=== PATIENT | male | born 1990 | race Caucasian/White ===

== ENCOUNTER 2021-04-10 10:36 | Emergency (ER) | payer OTHER, SELFPAY ==
[2021-04-10 10:54] VITALS: BP 143/110; PULSE 84; RESP 20; TEMP 36.2; O2SAT 98
--- NOTE | 2021-04-10 11:29 | ED.EYEPROB ---
HPI - Eye Problem General Chief complaint: Eye Problems Stated complaint: eye injury Time Seen by Provider: 04/10/21 11:14 Source: patient and RN notes reviewed Mode of arrival: ambulatory Limitations: no limitations History of Present Illness HPI Narrative: Patient presents today with an injury to his left eye. States he was using a plastic toothpick to pick at his teeth last night. States he had an itch to his left cheek, went to scratch it with a toothpick and poked himself in the left eye with a toothpick. Currently rates his left eye 6/10. He has tried to flush the eye with saline solution and water. Pain increases with movement. He has to keep the eye closed to have any relief of symptoms. He does report a foreign body sensation and photophobia. Right eye 20/20, left eye 20/50 MD chief complaint: eye pain and eye injury Related Data Allergies Allergy/AdvReac Type Severity Reaction Status Date / Time No Known Allergies Allergy Verified 04/10/21 10:51 Review of Systems Review of Systems: Narrative: CONSTITUTIONAL: Denies body aches, fever, chills, or sweats. EYES: Denies visual changes, redness, or discharge. + Left eye injury ENT: Denies rhinorrhea, congestion, sore throat, or otalgia. CARDIOVASCULAR: Denies chest pain, palpitations, or edema. RESPIRATORY: Denies cough or dyspnea. GASTROINTESTINAL: Denies abdominal pain, nausea, vomiting, or diarrhea. GENITOURINARY: Denies dysuria or hematuria. SKIN: Denies rash, itching, or wounds. MUSCULOSKELETAL: Denies back pain, joint pain, or myalgia. NEUROLOGIC: Denies headache, numbness, tingling, or weakness. PSYCH: Denies depression or anxiety. PMFSH Comments At time of signature, I have reviewed and agree with nursing past medical, surgical, social and family history unless otherwise noted. Please see nursing chart for further information. There is no relevant family history pertinent to the presenting complaint Exam Narrative: Exam Narrative: GENERAL: Well-appearing, well-nourished, and in moderate pain distress. HEAD: Normocephalic, atraumatic. EYES: EOMI. PERRL. Upper and lower eyelids are mildly edematous. Conjunctiva injected. Fluorescein uptake noted. See procedure note. Right eye normal. ENT: Mucous membranes pink and moist. + Rhinorrhea. NECK: Normal AROM. CHEST: No respiratory distress. EXTREMITIES: Normal range of motion. No edema. SKIN: Warm, dry, no rash. Capillary refill normal. Normal skin turgor. NEURO: No focal deficits. Alert and oriented x3. Gait steady. PSYCH: Normal affect. No signs of depression or anxiety. Course Vital Signs Vital signs: Vital Signs Temperature 97.1 F L 04/10/21 10:54 Pulse Rate 84 04/10/21 10:54 Respiratory Rate 20 04/10/21 10:54 Blood Pressure 143/110 H 04/10/21 10:54 Pulse Oximetry 98 04/10/21 10:54 Temperature 97.1 F L 04/10/21 10:54 Pulse Rate 84 04/10/21 10:54 Respiratory Rate 20 04/10/21 10:54 Blood Pressure 135/89 04/10/21 11:38 Pulse Oximetry 98 04/10/21 10:54 Reviewed. Pt has been instructed to follow up with his PCP regarding his elevated blood pressure today. Procedures Other Procedure Procedure 1: Other Procedure: Left eye was anesthetized with 1 drop of tetracaine and anesthesia was achieved. The eye was flushed with eye wash. Lid was inverted and examined. Moistened Qtip was used to sweep underneath the upper eyelid with 0 foreign bodies resulting. Cornea was dyed with fluorescein and 2 abrasions or ulcerations were noted noted at the 6 o'clock position of the iris. Pt tolerated procedure well. MDM - Eye Problem Differential Diagnosis Differential diagnosis: Likely corneal abrasion, conjunctivitis, corneal ulcer and ruptured globe Critical Care Time Critical Care Time Critical Care Time: No Discharge Plan Discharge Clinical Impression: Corneal abrasion Qualifiers: Encounter type: initial encounter Laterality: left Qualified Code(s): S0
[2021-04-10 11:38] VITALS: BP 135/89
== END 2021-04-10 11:38 | disposition home or self-care (01) ==
PROVIDERS: Emergency Provider Nurse Practitioner
DX: S05.02XA Injury of conjunctiva and corneal abrasion without foreign body, left eye, initial encounter (principal); W22.8XXA Striking against or struck by other objects, initial encounter
CPT/HCPCS: 99213; A9270; G0463

== ENCOUNTER 2023-01-13 12:29 | Emergency (ER) | payer SELFPAY ==
--- NOTE | ~2023-01-13 | XR_ITS ---
EXAMINATION: XR chest 2V 01/13/2023 13:25 INDICATION: Chest pain. Tachycardia. PROCEDURE: 2 view chest COMPARISON: No prior studies for comparison. FINDINGS: The lungs are clear. The cardiomediastinal silhouette is within normal limits. There are no pleural effusions. There is no pneumothorax suspected. IMPRESSION: 1: NO ACUTE CARDIOPULMONARY DISEASE. Reviewed, dictated and finalized at location B. [facility] REPRESENTATIVE
[2023-01-13 12:32] VITALS: BP 142/124; PULSE 155; RESP 18; TEMP 36.4; O2SAT 94
--- NOTE | 2023-01-13 12:32 | ECG_ITS ---
Measurements Intervals [place] Rate: 120 P: [place]: 0 QRS: 56 QRSD: 77 T: 67 QT: 286 QTc: 406 Interpretive Statements SINUS TACHYCARDIA WITH PAC NONSPECIFIC ST & T-WAVE ABNORMALITY ABNORMAL RHYTHM ECG NO PREVIOUS ECG AVAILABLE FOR COMPARISON Electronically Signed On 01-13-2023 15:38:12 BRICK MASON by Noah Vu M.D.
[2023-01-13] MEDS: ASPIRIN 81 MG CHEWABLE TABLET 324 MG PO (13:09)
[2023-01-13 13:18] LABS: Basophils Absolute Auto 0.1 K/mm3 (0.0-0.1); Basophils Percent Auto 0.9 % (0.2-1.2); Eosinophils Absolute Auto 0.2 K/mm3 (0-0.3); Eosinophils Percent Auto 1.7 % (0-4.4); Hematocrit 51.9 % (42.0-52.0); Hemoglobin 18.6 g/dL (14.0-18.0); Immature Granulocyte Absolute 0.03 K/mm3 (0.00-0.031); Immature Granulocyte Percent A 0.3 % (0-0.5); Lymphocytes Percent Auto 20.8 % (18.3-44.2); Mean Corpuscular HGB Conc 35.8 g/dl (32-36); Mean Corpuscular Volume 86.5 fl (80-100); Mean Platelet Volume 9.9 fl (7.4-10.4); Monocytes Absolute Auto 0.7 K/mm3 (0.1-0.6); Monocytes Percent Auto 7.7 % (2.6-8.5); Neutrophils Absolute Auto 5.9 K/mm3 (1.3-6.7); Neutrophils Percent Auto 68.6 % (45.5-73.1); Platelet Count Result 278 k/mm3 (150-375); Red Cell Distribution Width 11.8 % (11.5-14.5); White Blood Count 8.7 K/mm3 (4.5-10.0)
[2023-01-13 13:27] LABS: Prothrombin Time 12.9 Seconds (11.1-14.7)
[2023-01-13 13:29] LABS: Alanine Aminotransferase 23 U/L (6-50); Albumin Level 5.4 g/dL (3.5-5.1); Alkaline Phosphatase 134 U/L (38-126); Anion Gap 12 mmol/L (8-16); Aspartate Amino Transferase 28 U/L (17-59); Bilirubin,Total 1.1 mg/dL (0.2-1.3); Blood Urea Nitrogen 16 mg/dL (9-20); Calcium 9.9 mg/dL (8.4-10.2); Carbon Dioxide 24 mmol/L (22-30); Chloride 102 mmol/L (98-107); Estimated CRCL calculation 74 ml/min; Estimated Glomerular Filt Rate > 60; Glucose 125 mg/dL (65-110); Lipase 94 U/L (23-300); Potassium 3.7 mmol/L (3.4-5.0); Sodium 138 mmol/L (137-145)
[2023-01-13 13:47] LABS: Troponin I < 0.012 ng/mL (0.000-0.034)
[2023-01-13 14:32] LABS: Amphetamine Screen Urine Negative (Negative); Barbiturate Screen Urine Negative (Negative); Benzodiazepines Screen Urine Negative (Negative); Cannabinoid Screen Urine Positive (Negative); Cocaine Screen Urine Negative (Negative); Methadone Screen Urine Negative (Negative); Opiate Screen Urine Negative (Negative); Phencyclidine Screen Urine Negative (Negative)
--- NOTE | 2023-01-13 14:41 | ED.CHESTPAIN ---
HPI - Chest Pain General Chief Complaint: Chest Pain Stated Complaint: rapid heart Time Seen by Provider: 01/13/23 13:04 Source: patient Mode of arrival: ambulatory Limitations: no limitations History of Present Illness HPI narrative: 32-year-old with a history of anxiety disorder here with complaints of chest pain, palpitations started this morning. Patient states that been having anxiety symptoms for very long time has not seen any primary doctor. While he was at work this morning he started to feel his heart racing he denies any shortness of breath patient states he has not seen a primary doctor for several years. 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 No history of fever or chills. MD complaint: chest pain Onset (ago): day(s) Prior episodes: Yes Pain radiation: none Severity: mild Relieving factors: nothing Exacerbating factors: stress Treatment prior to arrival: none Related Data Allergies Allergy/AdvReac Type Severity Reaction Status Date / Time No Known Allergies Allergy Verified 01/13/23 12:37 Review of Systems Review of Systems: All systems reviewed & are unremarkable except as noted in HPI and below Constitutional: Constitutional: Reports no additional constitutional complaints Eyes: Eyes: Reports no additional eye complaints ENT: Reports system reviewed and no additional complaints, except as documented Cardiovascular: Cardiovascular: Reports as per HPI Respiratory: Respiratory: Reports no additional respiratory complaints Gastrointestinal: Gastrointestinal: Reports no additional gastrointestinal complaints Musculoskeletal: Musculoskeletal: Reports no additional musculoskeletal complaints Integumentary/Breasts: Skin/Breast: Reports system reviewed and no additional complaints, except as docu Exam Narrative: GENERAL: Well-appearing, well-nourished, and in no acute distress. Extremely anxious HEAD: Normocephalic, atraumatic. EYES: PERRLA and EOMI. NECK: Supple. CHEST: Clear to auscultation. No respiratory distress. HEART: Tachycardia. No murmur heard. Normal peripheral pulses. ABDOMEN: Soft, nontender, nondistended, normal active bowel sounds. EXTREMITIES: Normal range of motion. No edema. SKIN: Warm, dry, no rash. NEURO: No focal deficits. Alert and oriented x3. PSYCH: Normal mood and affect. Course Course Emergency Course: Patient upon arrival was extremely anxious tachypneic tachycardic counseled regarding his anxiety advised him to do deep breathing which brought his heart rate down however he still continued to be very anxious I did give him IV Ativan and obtain lab work and EKG shows sinus tach but no acute findings. Inform patient about his lab work, EKG findings. He is feeling much better. Recommended him to follow-up with his primary doctor or on-call doctor. Take Atarax as needed for anxiety. Vital Signs Vital signs: Vital Signs Temperature 36.4 C L 01/13/23 12:32 Pulse Rate 155 H 01/13/23 12:32 Respiratory Rate 18 01/13/23 12:32 Blood Pressure 142/124 H 01/13/23 12:32 Pulse Oximetry 94 01/13/23 12:32 Oxygen Delivery Room Air 01/13/23 12:32 Temperature 36.4 C L 01/13/23 12:32 Pulse Rate 155 H 01/13/23 12:32 Respiratory Rate 18 01/13/23 12:32 Blood Pressure 142/124 H 01/13/23 12:32 Pulse Oximetry 94 01/13/23 12:32 Oxygen Delivery Room Air 01/13/23 12:32 MDM - Chest Pain MDM Narrative Medical decision making narrative: 32-year-old with a history of anxiety disorder here with having symptoms of anxiety upon arrival he was very anxious, tachycardic and hypertensive. Under cardiac work-up, give Ativan IV 1 mg Lab Data Attestation: I reviewed the patient's lab results. 01/13/23 13:00 01/13/23 13:00 Labs: Lab Results 01/13/23 01/13/23 01/13/23 Range/Units 13:00 13:00 13:00 WBC 8.7 (4.5-10.0) K/mm3 RBC 6.00 (4.6-6.20) M/mm3 Hgb 18.6 H (14.0-18.0) g/dL Hct 51.9 (42.0-52.0) % MCV 86.5
[2023-01-13] MEDS: LORazepam INJ (*CRX) 2 MG/ML VIAL 1 MG IV PUSH (14:44)
[2023-01-13 14:45] LABS: Appearance Urine Clear (Clear); Bacteria Urine None Seen /hpf; Bilirubin Urine Negative (Negative); Blood Urine Negative (Negative); Color Urine Yellow (Yellow); Glucose Urine UA Negative (Negative); Ketones Urine Trace mg/dL (Negative); Leukocyte Esterase Ur Negative LEU/UL (Negative); Nitrate Urine Negative (Negative); Non Pathogenic Casts 0-2; Protein Urine Trace mg/dL (Negative); RBC Urine 0-2 /hpf (0-2); Specific Grav Ur 1.026 (1.001-1.035); Squamous Epithelial Cell Urine None seen /hpf (Few); WBC Urine 0-5 /hpf; pH Urine 5.5 (5.0-9.0)
[2023-01-13 14:53] LABS: Add Urine Microscopic? YES
== END 2023-01-13 15:35 | disposition home or self-care (01) ==
PROVIDERS: Emergency Medicine; Emergency Provider Family Medicine
DX: R07.89 Other chest pain (principal); F41.9 Anxiety disorder, unspecified; R00.0 Tachycardia, unspecified; R94.31 Abnormal electrocardiogram [ECG] [EKG]
CPT/HCPCS: 36415; 71046; 80053; 80307; 81001; 83690; 84484; 85025; 85610; 85730; 93005; 96374; 99284; A9270; J2060

== ENCOUNTER 2024-02-22 15:33 | Emergency (ER) | payer MEDICAID, SELFPAY ==
[2024-02-22 15:40] VITALS: BP 161/94; PULSE 91; RESP 20; TEMP 36.4; O2SAT 98
--- NOTE | 2024-02-22 16:49 | ED.RECABL ---
HPI - Recheck/Abnormal Lab/Rx General Chief Complaint: Recheck/Abnormal Lab/Rx Stated Complaint: medication refill Time Seen by Provider: 02/22/24 16:18 Source: patient Mode of arrival: ambulatory Limitations: no limitations History of Present Illness HPI narrative: Patient is a 33-year-old male who presents the ED with report of needing medication refill. Patient reports a long history of severe anxiety, sees a Dr. Christopher Martinez with Psychiatry. He is prescribed clonazepam 0.5 mg t.i.d. as needed. He refilled a 25 day prescription of this on 02/05 per med rec. Patient reports he has been out of the medication for 1.5 weeks. He would like assistance with his anxiety. He would like his medication refilled. He states he is unable to get a hold of his psychiatrist as he is currently out of town. He states he has 4-6 episodes of severe anxiety per day and takes 2 pills at a time. Denies homicidal or suicidal ideation. Denies any other concerns. Related Data Allergies Allergy/AdvReac Type Severity Reaction Status Date / Time No Known Allergies Allergy Verified 02/22/24 15:35 Review of Systems Review of Systems: CONSTITUTIONAL: Denies fever, chills, or sweats. CARDIOVASCULAR: Denies chest pain. RESPIRATORY: Denies dyspnea. GASTROINTESTINAL: Denies abdominal pain, nausea, vomiting NEUROLOGIC: Denies headache, dizziness, numbness, or weakness. PSYCHIATRIC: See HPI All systems reviewed & are unremarkable except as noted in HPI and below Exam Narrative: GENERAL: Well appearing, well-nourished, non-toxic, in no acute distress. HEAD: Normocephalic, atraumatic. RESPIRATORY: Airway patent, respirations nonlabored. Clear to auscultation bilaterally, no rales, rhonchi, wheezing. CARDIOVASCULAR: Regular rate and rhythm without murmurs, rubs, or gallops. MUSCULOSKELETAL: Moves all extremities. No gross deformities. SKIN: Warm, dry, normal color. NEURO: A&O X3. Speech clear. No focal deficits. PSYCHIATRIC: Anxious. Normal interaction. Course Vital Signs Vital signs: Vital Signs Temperature 97.6 F 02/22/24 15:40 Pulse Rate 91 02/22/24 15:40 Respiratory Rate 20 02/22/24 15:40 Blood Pressure 161/94 H 02/22/24 15:40 Pulse Oximetry 98 02/22/24 15:40 Oxygen Delivery Room Air 02/22/24 15:40 Temperature 97.6 F 02/22/24 15:40 Pulse Rate 91 02/22/24 15:40 Respiratory Rate 20 02/22/24 15:40 Blood Pressure 161/94 H 02/22/24 15:40 Pulse Oximetry 98 02/22/24 15:40 Oxygen Delivery Room Air 02/22/24 15:40 MDM - Recheck/Abnormal Lab/Rx MDM Narrative Medical decision making narrative: Patient presented to ED wanting medication refill of his Klonopin. Per med rec, 25 day supply was filled on 02/05. Patient reports he has been out of this medication for the last 1.5 weeks. Essentially patient has used an entire month supply in a little over 1 week. I discussed this with patient and my concern that he is abusing the medication. He is using at least 3times more medication per day than is prescribed. Advised that he should not be out of the medication yet and that I am not comfortable refilling a medication that he is clearly misusing. I advised patient to follow-up with his psychiatrist for medication refills. Will give 1 dose of Ativan 0.5 mg PO in the ED. He will not be given a prescription for any further medications by myself. He denies suicidal or homicidal ideation. I asked patient if he would be interested in speaking with our crisis workers and patient declined. He states he just wants his anxiety under control. Patient will be discharged. Will be given psychiatry information for f/u. Given return precautions. Discharged in stable condition. Medical Records Attestation: I reviewed the patient's medical records. Discharge Plan Discharge Clinical Impression: Anxiety, Encounter for medication refill, Benzodiazepine abuse Patient Disposition: Home, Self-Care Condition: Sta
[2024-02-22] MEDS: LORazepam (*CRX) 0.5 MG TABLET PO (17:22)
[2024-02-22 17:25] VITALS: BP 155/98; PULSE 82; RESP 18; TEMP 36.9; O2SAT 100
== END 2024-02-22 17:28 | disposition home or self-care (01) ==
LOC: ANHED 16:55
PROVIDERS: Emergency Provider Physician Assistant; PCP Emergency Medicine
DX: F13.10 Sedative, hypnotic or anxiolytic abuse, uncomplicated (principal); F41.9 Anxiety disorder, unspecified
CPT/HCPCS: 99283; A9270